=== PATIENT | male | born 1970 | race Caucasian/White ===

== ENCOUNTER 2022-05-14 21:36 | Emergency (ER) | payer BC, MEDICAID, SELFPAY ==
[2022-05-14] VITALS (21 sets, daily range): BP systolic 155–159; BP diastolic 84–87; PULSE 119–133; RESP 18; TEMP 36.9; O2SAT 94–98; BMI 31.8
--- NOTE | 2022-05-14 21:58 | CTR_ITS ---
PROCEDURE INFORMATION: Exam: CT Abdomen And Pelvis With Contrast Exam date and time: 05/14/2022 10:12 PM Age: 51 years old Clinical indication: Abdominal pain; Prior surgery; Surgery type: Gb; Patient HX: C/O epigastric pain with fever. History of pancreatitis. ; Additional info: Abd pain TECHNIQUE: Imaging protocol: Computed tomography of the abdomen and pelvis with contrast. Radiation optimization: All CT scans at this facility use at least one of these dose optimization techniques: automated exposure control; mA and/or kV adjustment per patient size (includes targeted exams where dose is matched to clinical indication); or iterative reconstruction. Contrast material: OMNI 350; Contrast volume: 100 ml; Contrast route: INTRAVENOUS (IV); REPORTING DATA: Count of CT and Cardiac NM exams in prior 12 months: This patient has received 0 known CTs and 0 known cardiac nuclear medicine studies in the 12 months prior to the current study. COMPARISON: No relevant prior studies available. RADIATION DOSE METRICS: Total DLP (mGy-cm): 1018.63 FINDINGS: Liver: Normal liver size without cirrhosis or suspicious mass. Tiny hypodense lesion in the left lobe measuring about 4 mm, nonspecific but is likely benign cysts. Gallbladder and bile ducts: Absent gallbladder. Minimal intrahepatic and extrahepatic bile duct dilatation with distal CBD measuring about 7 mm. There is a punctate hyperdense/calcific focus measuring about 2 mm at the distal CBD which may represent a retained intraductal calculus just above the ampulla, coronal series 6, image 33. Pancreas: The pancreas is normal in size and contour with no obvious enhancing mass or parenchymal necrosis. There is a discrete heterogeneous genius hypodense collection in the gastro pancreatic space, measuring about 13.4 x 6 cm cross-section and 8.3 cm craniocaudad. The collection contains heterogeneous content with slightly high density material suggestive of probable pseudocyst with internal debris or subacute/chronic blood products. There is minimal regional fat stranding suggest an element of mild acute inflammatory response. No pancreatic ductal dilatation. Spleen: Minimal splenomegaly. Adrenal glands: Normal. No mass. Kidneys and ureters: A few nonobstructing left renal calculi, the largest measuring 10 x 4 by 9 mm. Stomach and bowel: Colonic diverticulosis. Low stool burden. Appendix: No evidence of appendicitis. Intraperitoneal space: Unremarkable. No free air. No significant fluid collection. Vasculature: No large branch venous thrombosis. Lymph nodes: No enlarged lymph nodes. Urinary bladder: Unremarkable as visualized. Reproductive: Mildly enlarged prostate. Bones/joints: No acute fracture. Soft tissues: No acute findings. CT/CT abdomen pelvis w con* [id number] IMPRESSION: 1. Provided history of pancreatitis. Somewhat heterogeneous low-density collection in the gastro pancreatic space, likely a pancreatic pseudocyst in the setting of prior pancreatitis. No obvious large solid mass or pancreatic ductal dilatation. There is minimal stranding suggesting minimal element of acute inflammatory response. Clinical correlation and imaging follow-up should be obtained to assess interval change and to exclude cystic appearing neoplastic process or infected collection 2. Prior cholecystectomy. Minimal biliary dilatation with punctate focus in the distal CBD which may represent choledocholithiasis. 3. Colonic diverticulosis, renal calculi and other nonacute findings as described.
--- NOTE | 2022-05-14 21:58 | ED_ITS ---
HPI - Abdominal Pain General: Chief Complaint: Abdominal Pain Stated Complaint: n/v,abd pain Time Seen by Provider: 05/14/22 21:38 Source: patient Mode of arrival: ambulatory Limitations: no limitations History of Present Illness: 51-year-old male states has been having abdominal pain since morning. He states that the pain is worsened throughout the day its diffuse in nature rates an 8 out of 10 he states this afternoon he started having multiple episodes of vomiting and has not been able to tolerate any p.o. He denies any worsening improving factors he denies any fevers. Associated Symptoms: Reports nausea and vomiting; Denies chills, dysuria and fever(s) Review of Systems Const: Denies: fever(s), chills, body aches or change in appetite Eyes: Denies: blurry vision or eye discomfort ENMT: Denies: throat pain or dental pain Card: Denies: chest pain Resp: Denies: dyspnea GI: Reports: abdominal pain, nausea and vomiting : Denies: dysuria Musc: Denies: neck pain or back pain Skin/Breast: Denies: rash Neuro: Denies: headache(s) Psych: Denies: depression Mario/Lymph: Denies: easy bruising All/Imm: Denies: urticaria PFSH ED PFSH: Medical History (Updated 05/14/22 @ 23:45 by Lesley Barton MD) Pancreatitis Surgical History (Updated 05/14/22 @ 21:59 by Lesley Barton MD) History of cholecystectomy Social History (Updated 05/14/22 @ 21:59 by Lesley Barton MD) Alcohol intake: never Physical Exam Const: COMMON NORMALS: patient oriented x3 and healthy appearing HENMT: COMMON NORMALS: normocephalic and atraumatic HEAD & SCALP: normocephalic and atraumatic Eye: COMMON NORMALS: Equal, round and reactive pupils present and EOMs intact bilaterally PUPIL: Yes Equal, round and reactive pupils present Neck/C-Spine: COMMON NORMALS: full ROM and supple Chest: COMMONS NORMALS: normal inspection of the chest and normal palpation of entire chest wall Resp: COMMON NORMALS: normal respiratory effort, No retractions, No use of accessory muscles and clear to auscultation bilaterally AUSCULTATION: clear to auscultation bilaterally Cardio: COMMON NORMALS: regular rate, regular rhythm and No murmurs present (Cardio) RATE: regular rate RHYTHM: regular rhythm GI: COMMON NORMALS: Normal to inspection, nondistended, normoactive bowel sounds present, Soft to palpation and no masses PALPATION: Yes Soft to palpation OTHER: diffuse tenderness Extremity: COMMON NORMALS: normal to inspection and full ROM Neuro: COMMON NORMALS: patient oriented x3, moves all extremities and no focal motor deficits Psych: COMMON NORMALS: mental status grossly normal, Normal thought process present and cooperative THOUGHT PROCESS: Normal thought process present Skin: COMMON NORMALS: no rashes or lesions noted and no wounds GENERAL SKIN EXAM: no rashes or lesions noted Course Vital Signs: Vital signs: Vital Signs Temperature 98.4 F 05/14/22 21:43 Pulse Rate 119 H 05/14/22 22:35 Respiratory Rate 18 05/14/22 22:35 Blood Pressure 159/87 05/14/22 23:05 Pulse Oximetry 95 05/14/22 23:05 Oxygen Delivery Me thod 05/14/22 22:35 MDM - Abdominal Pain Medical Decision Making Patient presents with abdominal pain he does have elevated liver enzymes along with elevated bilirubin CT shows a elevated common bile duct with a possible stone patient given IV antibiotics here his pain has improved here as well I spoke to [place] and will transfer there for higher level of care for GI f or likely ERCP. Lab Data 05/14/22 22:01 05/14/22 22:01 Labs/Radiology: Radiology Impressions Abdomen/Pelvis CT 05/14/22 21:58 IMPRESSION: 1. Provided history of pancreatitis. Somewhat heterogeneous low-density collection in the gastro pancreatic space, likely a pancreatic pseudocyst in the setting of prior pancreatitis. No obvious large solid mass or pancreatic ductal dilatation. There is minimal stranding suggesting minimal element of acute inflammatory response. Clinical correlation and imaging follow-up should be obtained to assess interval change and to exclude cystic appearing neoplastic process or infected collection 2. Prior cholecystectomy. Minimal biliary dilatation with punctate focus in the distal CBD which may represent choledocholithiasis. 3. Colonic diverticulosis, renal calculi and other nonacute findings as described. Laboratory Results WBC 11.9 10^3/uL (4.0-10.0) H 05/14/22 22:01 RBC 5.31 10^6/uL (4.1-5.3) H 05/14/22 22:01 Hgb 12.7 g/dL (11.7-16.6) 05/14/22 22: Hct 40.0 % (42.0-52.0) L 05/14/22: MCV 75.3 fl (80-94) L 05/14/22: MCH 23.9 pg (28.0-34.0) L 05/14/22: MCHC 31.8 g/dL (30.0-36.0) 05/14/22: RDW 14.7 % (12.1-15.1) 05/14/22: Plt Count 251 10^3/cmm (130-400) 05/14/22: MPV 8.5 fL (7.4-10.4) 05/14/22 22: Neut % (Auto) 90.5 % 05/14/22: Lymph % (Auto) 4.2 % 05/14/22: [place] % (Auto) 4.8 % 05/14/22: Eos % (Auto) 0.0 % 05/14/22: Baso % (Auto) 0.3 % 05/14/22: Neut # (Auto) 10.81 10^3/uL (1.8-7.7) H 05/14/22: Lymph # (Auto) 0.5 10^3/uL (0.8-4.8) L 05/14/22: [place] # (Auto) 0.6 10^3/uL (0.2-0.9) 05/14/22: Eos # (Auto) 0.0 10^3/uL (0.0-0.8) 05/14/22: Baso # (Auto) 0.0 10^3/uL (0.0-0.1) 05/14/22: Nucleated RBC % (auto) 0 % 05/14/22: Nucleated RBCs # 0.0 /100WBC 05/14/22: Sodium 136 mmol/L (136-145) 05/14/22: Potassium 4.4 mmol/L (3.5-5.1) 03/22/23 22:01 Chloride 101 mmol/L (98-107) 05/14/22 22:01 Carbon Dioxide 21 mmol/L (22-29) L 05/14/22 22:01 Anion Gap 18.4 (5-19) 05/14/22 22:01 BUN 12 mg/dL (6-20) 05/14/22 22:01 Creatinine 0.6 mg/dL (0.7-1.2) L 05/14/22 22: GFR Calculation 140.9 mL/min (90-130) H 05/14/22 22: Glucose 139 mg/dL (65-115) H 05/14/22 22: Calculated Osmolality 284 mOsm/kg (285-295) L 05/14/22 22: Calcium 9.3 mg/dL (8.5-10.5) 05/14/22 22: Total Bilirubin 3.5 mg/dL (0.15-1.2) H 05/14/22 22: AST 538 U/L (0-40) H 05/14/22 22: ALT 479 U/L (0-41) H 05/14/22 22:01 Alkaline Phosphatase 190 U/L (40-130) H 05/14/22 22:01 Total Protein 8.3 g/dL (6.6-8.7) 05/14/22 22: Albumin 4.3 g/dL (3.5-5.2) 05/14/22 22: Globulin 4.0 g/dL (1.3-4.6) 05/14/22 22: Lipase 20 U/L (13-60) 05/14/22 22: Urine Color Yellow (Yellow) 05/14/22 23:00 Urine Appearance Clear (CLEAR) 05/14/22 23:00 Urine pH 6.5 (5-7) 05/14/22 23:00 Ur Specific [place] 1.005 (1.005-1.030) 05/14/22 23:00 Urine Protein 1+ (Negative) H 05/14/22 23:00 Urine Glucose (UA) Norm (Normal) 05/14/22 23:00 Urine Ketones 1+ (Negative) H 05/14/22 23:00 Urine Blood 3+ (Negative) H 05/14/22 23:00 Urine Nitrate Negative (Negative) 05/14/22 23:00 Urine Bilirubin Neg (Negative) 05/14/22 23:00 Urine Urobilinogen Neg mg/dL (Negative) 05/14/22 23:00 Ur Leukocyte Esterase Negative (Negative) 05/14/22 23:00 Urine RBC 15-25 /hpf (0-2) H 05/14/22 23:00 Urine WBC None /hpf (0-5) 05/14/22 23:00 Ur Squamous Epith Cells None /hpf (0-5) 05/14/22 23:00 Amorphous Sediment Not Reportable 05/14/22 23:00 Urine Bacteria None /hpf (NONE) 05/14/22 23:00 Discharge Plan Discharge Patient Disposition: Xfer Short-Term Hosp Clinical Impression: Common bile duct calculus, Elevated liver enzymes Referrals: Alvaro Gambino [Primary Care Provider] - Coding Level of Care Code ED Tv Production Assistant for Kirang Michael
[2022-05-14] MEDS: sodium chloride 0.9% 1,000 ML 999 ML IV (22:00)
[2022-05-14] MEDS: ondansetron 2 mg/ML SDV 2 mL 4 MG IVP (22:00)
[2022-05-14 22:11] LABS: Basophils % 0.3 %; Hemoglobin 12.7 g/dL (11.7-16.6); Lymphocytes # 0.5 10^3/uL (0.8-4.8); Lymphocytes % 4.2 %; Mean Corpuscular HGB Conc 31.8 g/dL (30.0-36.0); Mean Corpuscular Hemoglobin 23.9 pg (28.0-34.0); Mean Corpuscular Volume 75.3 fl (80-94); Mean Platelet Volume 8.5 fL (7.4-10.4); Monocytes # 0.6 10^3/uL (0.2-0.9); Monocytes % 4.8 %; Neutrophils # 10.81 10^3/uL (1.8-7.7); Neutrophils % 90.5 %; Nucleated Red Blood Cells % 0 %; Platelet Count 251 10^3/cmm (130-400); Red Blood Count 5.31 10^6/uL (4.1-5.3); Red Cell Distribution Width 14.7 % (12.1-15.1); White Blood Count 11.9 10^3/uL (4.0-10.0)
[2022-05-14] MEDS: iohexol 350 mg/mL 500 mL Btl (per mL) IV (22:14)
[2022-05-14] MEDS: morphine 4 mg/mL SDV 1 mL IVP (22:24)
[2022-05-14 22:32] LABS: Alanine Aminotransferase 479 U/L (0-41); Albumin Level 4.3 g/dL (3.5-5.2); Alkaline Phosphatase 190 U/L (40-130); Aspartate Amino Transferase 538 U/L (0-40); Blood Urea Nitrogen 12 mg/dL (6-20); Calcium 9.3 mg/dL (8.5-10.5); Carbon Dioxide 21 mmol/L (22-29); Chloride 101 mmol/L (98-107); Glomerular Filtration Rate 140.9 mL/min (90-130); Glucose 139 mg/dL (65-115); Lipase 20 U/L (13-60); Osmolality Calculated 284 mOsm/kg (285-295); Sodium 136 mmol/L (136-145); Total Bilirubin 3.5 mg/dL (0.15-1.2); Total Protein 8.3 g/dL (6.6-8.7)
[2022-05-14 22:57] LABS: Anion Gap 18.4 (5-19); Potassium 4.4 mmol/L (3.5-5.1)
[2022-05-14 23:23] LABS: Add Urine Microscopic? YES; Bilirubin Urine Neg (Negative); Blood Urine 3+ (Negative); Glucose Urine UA Norm (Normal); Ketones Urine 1+ (Negative); Leukocyte Esterase Urine Negative (Negative); Nitrate Urine Negative (Negative); Protein Urine 1+ (Negative); RBC Urine 15-25 /hpf (0-2); Specific Gravity, Urine 1.005 (1.005-1.030); Urine Appearance Clear (CLEAR); Urine Color Yellow (Yellow); Urobilinogen Urine Neg (Negative); pH Urine 6.5 (5-7)
[2022-05-14 23:24] LABS: Add Urine Culture? Yes
[2022-05-14] MEDS: piperacillin-tazobactam 3.375 GM in sodium chloride 0.9% (plus) 50 ML IV (23:46)
[2022-05-15] VITALS (13 sets, daily range): BP systolic 104–138; BP diastolic 77–90; PULSE 122–141; RESP 15–25; O2SAT 93–95
== END 2022-05-15 01:05 | disposition short-term general hospital (02) ==
PROVIDERS: Emergency Provider Emergency Medicine; PCP Family Medicine
DX: K80.50 Calculus of bile duct without cholangitis or cholecystitis without obstruction (principal); R74.8 Abnormal levels of other serum enzymes
CPT/HCPCS: 74177; 80053; 81001; 83690; 85025; 87086; 96365; 96375; 99285; J2270; J2405; J2543; J7030; Q9967